=== PATIENT | male | born 1965 | race Caucasian/White ===

== ENCOUNTER 2018-08-12 07:09 | Day surgery (SDC) | payer BC ==
[~2018-08-12] VITALS: Ht 177.8 cm; Wt 95.3 kg
[2018-08-12 07:59] VITALS: Ht 177.8 cm; Wt 95.3 kg
[2018-08-12 08:22] VITALS: BP 104/68; PULSE 59; RESP 18
[2018-08-12] MEDS ORDERED: FENTAnyl 50 MCG/ML VIAL ONE (09:37)
[2018-08-12] MEDS ORDERED: MIDAZOLAM 1 MG/ML 2 ML INJ ONE ×2 (09:37)
[2018-08-12 10:00] VITALS: BP 115/68; PULSE 60; RESP 20
== END 2018-08-12 12:10 | disposition home or self-care (01) ==
LOC: GIL 07:09
PROVIDERS: ATTEND Internal Medicine Gastroenterology
DX: Z12.11 Encounter for screening for malignant neoplasm of colon (principal); D12.8 Benign neoplasm of rectum; K57.30 Diverticulosis of large intestine without perforation or abscess without bleeding
CPT/HCPCS: 45380; 88305; J2250; J3010; Z7610